=== PATIENT | male | born 1980 | race Caucasian/White ===

== ENCOUNTER → 2017-01-11 | Outpatient (CLI) | payer OTHER ==
--- NOTE | 2017-01-11 10:11 | KCIC ---
Examination: Ultrasound testis HISTORY History of followup ultrasound from 07/15/2016. FINDINGS The right testis measures 3.8 x 2.8 x 2.0 centimeters. The left testis measures 3.6 x 2.7 x 2.0 centimeters. Blood flow identified in the bilateral testis. The right and left epididymis grossly appears unremarkable. Tiny microcalcifications identified in the bilateral testes grossly similar to prior exam. Few tortuous appearing vascular structures identified in the bilateral scrotal region, more on the left likely varicoceles appears slightly more prominent compared to prior exam. 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 - The previously visualized epididymal appendix is not clearly identified on this examination. - Mild worsening of the bilateral varicoceles most on the left. Electronically signed by: Taiwo Lin (Jan 11, 2017 10:10:15)
== END | disposition home or self-care (01) ==
LOC: KCIC US 08:48
PROVIDERS: ATTEND Nurse Practitioner Occupational Health
DX: N50.9 Disorder of male genital organs, unspecified (principal)
CPT/HCPCS: 76870